=== PATIENT | male | born 1985 | race Caucasian/White ===

== ENCOUNTER 2024-02-13 20:57 | Emergency (ER) | payer SELFPAY ==
[2024-02-13 21:07] VITALS: BP 116/73; PULSE 67; RESP 16; TEMP 36.3; O2SAT 98; BMI 26.6
--- NOTE | 2024-02-13 22:10 | ED_ITS ---
HPI - Skin/Abscess/Foreign Bdy 2 General: Chief complaint: Skin/Abscess/Foreign Body Stated complaint: Left leg wound Time Seen by Provider: 02/13/24 21:25 History of Present Illness: Sky Fulton is a 38-year-old male that presents to the emergency department with left leg abscess. Patient reports onset Thursday but significantly worse in the last 24 hours. He has a large, greater than 2 cm area of induration and swelling and even some fluctuance. Edwin pus draining from to pin hole sites. He denies systemic symptoms. Denies fever or chills cough congestion. Unclear if he is up-to-date on tetanus Associated symptoms: Deny chills, fever(s), nausea or vomiting Related Data Home Medications Medication Instructions Recorded Confirmed ibuprofen 200 mg capsule 200 mg PO Q6H PRN 08/09/21 08/15/21 Previous Rx's Medication Instructions Recorded prednisone 20 mg tablet 60 mg (3 x 20 mg) PO DAILY 7 days 08/09/21 #21 tabs sulfamethoxazole 800 1 tab PO BID cellulitis #20 tabs 08/09/21 mg-trimethoprim 160 mg tablet (Bactrim DS) sulfamethoxazole 800 1 tab PO BID 7 days #14 tabs 02/13/24 mg-trimethoprim 160 mg tablet (Bactrim DS) Allergies Allergy/AdvReac Type Severity Reaction Status Date / Time bee venom protein (honey bee) Allergy Intermediate ADR-Swelling Verified 02/13/24 21:11 of the Eye Review of Systems 2 General: Reports: 10 or more systems reviewed and unremarkable except in HPI and below Const: Denies: fever(s), chills, change in appetite, change in weight, fatigue or malaise Eyes: Denies: change in vision, eye discomfort, eye discharge or eye redness ENMT: Denies: throat pain, enlarged tonsils, odynophagia, hoarseness, ear or mastoid pain, ear discharge, change in hearing, tinnitus, nasal discharge, nasal congestion, post nasal drip or sinus pain Card: Denies: chest pain, palpitations, irregular heart rhythm, edema, dyspnea on exertion, orthopnea or leg pain with exertion Resp: Denies: dyspnea, productive cough, non-productive cough, wheezing, stridor or chest congestion GI: Denies: abdominal pain, nausea, vomiting, dysphagia, diarrhea, constipation, bloating, GI cramping or hematochezia : Denies: flank pain, dysuria, urinary frequency, urinary urgency, urinary hesitancy, oliguria or hematuria Musc: Denies: neck pain, back pain, extremity pain, joint pain, joint swelling, joint redness, joint warmth or muscle weakness Skin/Breast: Denies: rash, pruritus, erythema, photosensitivity or new lesions Neuro: Denies: headache(s), numbness in extremities, weakness in extremities, sensory changes, lack of coordination, difficulty walking, frequent falls, dizziness, confusion, Slurred speech present, difficulty communicating thoughts, seizure-like activity or involuntary movements Endo: Denies: polyuria, polydipsia or tired all the time Jairo/Lymph: Denies: easy bruising or easy bleeding PFSH ED 2 PFSH: Medical History (Updated 02/13/24 @ 22:16 by LATRICE Vásquez) Cellulitis Spider bite, venomous Social History Smoking and tobacco/nicotine status: current every day tobacco/nicotine user Physical Exam 2 Const: COMMON NORMALS: no acute distress, healthy appearing and well nourished EXAM LIMITATIONS: no altered mental status GENERAL APPEARANCE: cooperative ORIENTATION/CONSCIOUSNESS: Yes oriented to person, Yes oriented to place and Yes oriented to time HENMT: COMMON NORMALS: atraumatic, hearing grossly normal bilaterally, TM's normal bilaterally, oropharynx normal and dentition normal HEAD & SCALP: n ormal to inspection and atraumatic FACE & SINUS: sinuses nontender T YMPANIC MEMBRANE: TM's normal bilaterally Eye: COMMON NORMALS: Equal, round and reactive pupils present and EOMs intact bilaterally GENERAL EYE: appearance normal, both eyes and all related structures PUPIL: Yes Equal, round and reactive pupils present Neck/C-Spine: COMMON NORMALS: full ROM, no lymphadenopathy, no meningeal signs and Thyroid normal THYROID: Thyroid normal Resp: COMMON NORMALS: normal respiratory effort and clear to auscultation bilaterally AUSCULTATION: clear to auscultation bilaterally, no crackles and no wheezes Cardio: COMMON NORMALS: regular rate, regular rhythm and Peripheral pulses 2+ throughout JUGULAR VENOUS DISTENTION: no JVD RATE: regular rate RHYTHM: regular rhythm HEART SOUNDS: no murmurs PERIPHERAL PULSES: Peripheral pulses 2+ throughout GI: COMMON NORMALS: Soft to palpation and No hepatosplenomegaly present I NSPECTION: Yes normal to inspection PALPATION: Yes Soft to palpation, No Tenderness to palpation present (GI), No Guarding due to palpation present (GI) and Yes No hepatosplenomegaly present Extremity: COMMON NORMALS: normal to inspection, full ROM and capillary refill normal Neuro: COMMON NORMALS: CN's II-XII intact bilaterally S ENSORIUM/ORIENTATION: Yes oriented to person, Yes oriented to place and Yes oriented to time MENINGEAL SIGNS: Yes no meningeal signs Skin: COMMON NORMALS: no rashes or lesions noted and turgor normal SKIN IMAGES (MALE): 1. Large abscess. Partially indurated and partially fluctuant. GENERAL SKIN EXAM: no rashes or lesions noted, elasticity normal and turgor normal LESIONS: lesion noted NAILS: normal Procedures Abscess I/D Site: lower extremity Side (if applicable): left (Lateral) Sedation/analgesia: none Technique: incised with #11 blade Amount of fluid expressed (mL): 15 Irrigation: No Packing used?: none Complications: pain and bleeding Course 2 Vital Signs: Vital signs: Vital Signs Temperature 97.3 F L 02/13/24 21:07 Pulse Rate 67 02/13/24 21:07 Respiratory Rate 16 02/13/24 21:07 Blood Pressure 116/73 02/13/24 21:07 Pulse Oximetry 98 02/13/24 21:07 Oxygen Delivery Me thod Room Air 02/13/24 21:07 MDM - Skin/Abscess/Foreign Bdy Medicial Decision Making Patient evaluated in the emergency department for left lower extremity abscess. Small incision was made over the pinhole site where pus was draining from. Approximately 15 cc of blood and pus drained from the site. He reports that he does feel much better I treated the patient with Bactrim, Toradol, Tdap. He is going to go home on Bactrim. Patient needs to keep the area clean and dry. He can use a dry dressing as needed He is to follow-up with his primary care doctor Thursday or Thursday for recheck of site. All questions answered No radiology studies performed this visit Discharge Plan Discharge Patient Disposition: Home Clinical Impression: Cellulitis, Abscess of skin or subcutaneous tissue Condition: Stable Prescriptions: New sulfamethoxazole-trimethoprim [Bactrim DS] 800-160 mg tablet 1 tab PO BID 7 Days Qty: 14 0RF No Action ibuprofen 200 mg capsule 200 mg PO Q6H PRN sulfamethoxazole-trimethoprim [Bactrim DS] 800-160 mg tablet 1 tab PO BID Qty: 20 0RF prednisone 20 mg tablet 60 mg PO DAILY 7 Days Qty: 21 0RF Discharge Orders: Discharge ED (Routine); Ordered 02/13/24 Ordered By: Esequiel Bradford Referrals: Priscilla Bedolla FNP [Primary Care Provider] - Discharge Diet: Advance as tolerated Discharge Activity: Resume usual activity Patient Instructions: Abscess (ED), Abscess Follow-up (ED), Pain Management Activity Restrictions/Additional Instructions: Please take your antibiotics as prescribed Please keep the area clean and dry Please follow-up with primary care If your redness is worsening or not improving after 24 hours then you would need to be reevaluated. Please return to the emergency department as needed for new concerning or worsening symptoms Coding Level of Care Code ED [employer] Records Clerk for Sanjeev Mireles
[2024-02-13] MEDS: tetanus-dipt-pertussis 0.5 mL SDV IM (22:26)
[2024-02-13] MEDS: sulfamethoxazole-trimeth DS 160-800 mg Tablet 1 TAB PO (22:28)
[2024-02-13] MEDS: ketorolac 10 mg Tablet PO (22:30)
[2024-02-13 22:48] VITALS: BP 112/75; PULSE 63; RESP 18; O2SAT 100
== END 2024-02-13 22:49 | disposition home or self-care (01) ==
PROVIDERS: Emergency Provider Nurse Practitioner; PCP Nurse Practitioner
DX: L02.416 Cutaneous abscess of left lower limb (principal)
CPT/HCPCS: 10060; 87070; 87077; 87186; 90471; 90715; 99283